=== PATIENT | male | born 1975 | race Caucasian/White ===

== ENCOUNTER 2017-11-17 11:15 | Emergency (ER) | payer OTHER ==
[2017-11-17] MEDS ORDERED: Sodium Chloride 0.9% 10 ML Syringe FLUSH PRN (11:41)
[2017-11-17] MEDS ORDERED: Dicyclomine 10 MG Cap PO ONE (11:42)
--- NOTE | 2017-11-17 11:43 | EDM.PDOC ---
ED HPI GENERAL MEDICAL PROBLEM - General Chief Complaint: Abdominal Pain Stated Complaint: ABDOMINAL PAIN Time Seen by Provider: 11/17/17 11:31 Source of Information: Reports: Patient History Limitations: Reports: No Limitations - History of Present Illness INITIAL COMMENTS - FREE TEXT/NARRATIVE: Patient is a 42-year-old male presents ED complaining of periumbilical abdominal pain that started since this past Saturday. States discomfort is described as a crampy sensation that waxes and wanes and comes and goes throughout the day. States yesterday the pain was worse. His appetite is poor and has been experiencing early satiety. States at times he has increased flatulence with relief of pain with passing gas. He does not feel constipated and notes he is having normal bowel movements that are semi-hard with no blood present. There is no straining noted. There is no prior history as such. He denies any acid reflux. No dizziness, dysuria, testicular pain, or ingestion of bad or questionable food, sick exposures, or recent out of country travel. Patient did take a laxative yesterday with no significant change. Has no additional past medical history. Currently taking no medications. Surgical history none. Treatments NETWORKING SPECIALIST: Reports: Other (see below) Other Treatments NETWORKING SPECIALIST: [email or web address] Lower Abdomen Pain Score (Numeric/FACES): 3 - Related Data Allergies Allergy/AdvReac Type Severity Reaction Status Date / Time No Known Allergies Allergy Verified 11/17/17 11:26 Home Meds: Home Meds . [No Known Home Meds] 11/17/17 [History] Past Medical History - Past Surgical History HEENT Surgical History: Reports: Tonsillectomy Musculoskeletal Surgical History: Reports: Other (See Below) Other Musculoskeletal Surgeries/Procedures:: septic knee Social & Family History - Tobacco Use Smoking Status *Q: Current Every Day Smoker Years of Tobacco use: 15 Packs/Tins Daily: 0.5 - Caffeine Use Caffeine Use: Reports: Coffee, Soda, Tea - Recreational Drug Use Recreational Drug Use: No ED ROS GENERAL - Review of Systems Review Of Systems: See Below Constitutional: Reports: Decreased Appetite. Denies: Fever, Chills HEENT: Reports: No Symptoms Respiratory: Reports: No Symptoms Cardiovascular: Reports: No Symptoms GI/Abdominal: Reports: Abdominal Pain, Decreased Appetite, Distension, Flatus. Denies: Black Stool, Bloody Stool, Constipation, Diarrhea, Hematemesis, Hematochezia, Melena, Mucous in Stool, Nausea, Vomiting : Reports: No Symptoms Musculoskeletal: Reports: No Symptoms Neurological: Reports: No Symptoms ED EXAM, GI/ABD - Physical Exam Exam: See Below Exam Limited By: No Limitations General Appearance: Alert, WD/WN, No Apparent Distress Ears: Hearing Grossly Normal Nose: Normal Inspection Throat/Mouth: Normal Inspection, Normal Oropharynx, Normal Voice, No Airway Compromise Respiratory/Chest: No Respiratory Distress, Lungs Clear, Normal Breath Sounds, No Accessory Muscle Use Cardiovascular: Normal Peripheral Pulses, Regular Rate, Rhythm GI/Abdominal Exam: Normal Bowel Sounds, Distended, Tender (minimal suprapubic abdominal pain. Negative McBurney's, negative Hernandez sign.) (Male) Exam: Deferred (No complaints) Rectal (Males) Exam: Deferred (No complaints) Back Exam: Normal Inspection Extremities: Normal Inspection Neurological: Alert, Oriented, CN II-XII Intact, Normal Cognition, No Motor/ Sensory Deficits Psychiatric: Normal Affect, Normal Mood Skin Exam: Warm, Dry, Intact, Normal Color Course - Vital Signs Last Recorded V/S: Last Vital Signs Temp 98.1 F 11/17/17 11:21 Pulse 87 11/17/17 11:21 Resp 20 11/17/17 11:21 BP 127/86 11/17/17 11:21 Pulse Ox 98 11/17/17 11:21 Orthostatic Blood Pressure [ 111/85 Standing] Orthostatic Blood Pressure [ 126/96 Sitting] Orthostatic Blood Pressure [ 126/89 Supine] - Orders/Labs/Meds Orders: Active Orders 24 hr Category Date Time Status Peripheral IV Care [RC] . DIRECTED Care 11/17/17 11:41 Active Abdomen 2V AP Flat Upright [CR] Stat Exams 11/17/17 11:42 Taken UA W/MICROSCOPIC [URIN] Stat Lab 11/17/17 12:55 Ordered Peripheral IV Insertion Adult [OM.PC] Routine Oth 11/17/17 11:41 Ordered Labs: Laboratory Tests 11/17/17 11/17/17 11/17/17 Range/Units 11:50 11:50 12:55 WBC 5.14 (4.23-9.07) K/mm3 RBC 5.01 (4.63-6.08) M/mm3 Hgb 16.8 (13.7-17.5) gm/L Hct 47.9 (40.1-51.0) % MCV 95.6 H (79.0-92.2) fl MCH 33.5 H (25.7-32.2) pg MCHC 35.1 (32.2-35.5) g/dl RDW Std Deviation 40.8 (35.1-43.9) fL Plt Count 247 (163-337) K/mm3 MPV 9.3 L (9.4-12.3) fl Neutrophils % (Manual) 71 H (40-60) % Band Neutrophils % 0 (0-10) % Lymphocytes % (Manual) 25 (20-40) % Atypical Lymphs % 0 % Monocytes % (Manual) 2 (2-10) % Eosinophils % (Manual) 2 (0.8-7.0) % Basophils % (Manual) 0 L (0.2-1.2) Platelet Estimate Adequate RBC Morph Comment Normal Sodium 141 (136-145) mEq/L Potassium 4.0 (3.5-5.1) mEq/L Chloride 105 (98-107) mEq/L Carbon Dioxide 26 (21-32) mEq/L Anion Gap 14.0 (5-15) BUN 14 (7-18) mg/dL Creatinine 0.9 (0.7-1.3) mg/dL Est Cr Clr Drug Dosing 136.50 mL/min Estimated GFR (MDRD) > 60 (>60) mL/min BUN/Creatinine Ratio 15.6 (14-18) Glucose 86 (74-106) mg/dL Calcium 9.1 (8.5-10.1) mg/dL Total Bilirubin 0.8 (0.2-1.0) mg/dL AST 17 (15-37) U/L ALT 25 (16-63) U/L Alkaline Phosphatase 67 (46-116) U/L C-Reactive Protein < 0.2 (<1.0) mg/dL Total Protein 7.3 (6.4-8.2) g/dl Albumin 4.0 (3.4-5.0) g/dl Globulin 3.3 gm/dL Albumin/Globulin Ratio 1.2 (1-2) Lipase 96 (73-393) U/L Urine Color Yellow (Yellow) Urine Appearance Clear (Clear) Urine pH 6.0 (5.0-8.0) Ur Specific [place] 1.025 (1.005-1.030) Urine Protein Trace H (Negative) Urine Glucose (UA) Negative (Negative) Urine Ketones Negative (Negative) Urine Occult Blood Negative (Negative) Urine Nitrite Negative (Negative) Urine Bilirubin Negative (Negative) Urine Urobilinogen 0.2 (0.2-1.0) Ur Leukocyte Esterase Negative (Negative) Urine RBC 0-5 (0-5) /hpf Urine WBC 0-5 (0-5) /hpf Ur Epithelial Cells 0-5 (0-5) /hpf Urine Bacteria Not seen (FEW) /hpf Urine Mucus Not seen (FEW) /hpf Meds: Medications Discontinued Medications Generic Name Dose Route Start Last Admin Trade Name Freq PRN Reason Stop Dose Admin Dicyclomine HCl 20 mg 11/17/17 11:42 11/17/17 11:49 Bentyl PO 11/17/17 11:43 20 mg ONETIME ONE Administration Sodium Chloride 1,000 mls @ 999 mls/hr 11/17/17 11:56 11/17/17 12:01 Normal Saline IV 11/17/17 12:56 999 mls/hr ONETIME ONE Administration Magnesium Citrate 296 ml 11/17/17 13:44 11/17/17 13:57 Citrate Of Magnesia PO 11/17/17 13:45 296 ml ONETIME ONE Administration Sodium Chloride 10 ml 11/17/17 11:41 11/17/17 11:49 Saline Flush FLUSH 10 ml ASDIRECTED PRN Administration Keep Vein Open - Re-Assessments/Exams Free Text/Narrative Re-Assessment/Exam: IV established with initial labs including: CBC, chem 14, lipase, UA, CRP, and 2 view of the abdomen. Ordered Bentyl 20 mg by mouth. 2 view of the abdomen impression: Reviewed with Dr. Villegas. Nonspecific air and stool pattern. Findings maybe related to gastroenteritis. Labs reviewed: CBC, chem 14, and UA were sent and normal. CRP less than 0.2. Lipase normal. Reassessment, patient's feeling better after the Bentyl. We discussed obtaining CT the abdomen and pelvis to which I do not agree at this point. Suspect cause of discomfort is most likely related to constipation since he does get relief with passing gas and feels more distended. Exam findings were minimal. Patient agrees with this and will go ahead and treat the constipation with mag citrate one bottle this afternoon. One capful of MiraLAX every day for the next month. Follow-up with PCP in 3-5 days for reevaluation. He will return to the ED if he should develop any new or worsening symptoms. Departure - Departure Time of Disposition: 13:43 Disposition: Home, Self-Care 01 Condition: Good Clinical Impression: Abdominal pain in male Constipation Qualifiers: Constipation type: unspecified constipation type Qualified Code(s): K59.00 - Constipation, unspecified - Discharge Information *PRESCRIPTION DRUG MONITORING PROGRAM REVIEWED*: No *COPY OF PRESCRIPTION DRUG MONITORING REPORT IN PATIENT BENNY: No Instructions: High-Fiber Diet, Constipation, Adult, Abdominal Pain, Adult, Easy -to-Read Referrals: PCP,None [Primary Care Provider] - Forms: ED Department Discharge Additional Instructions: Take full bottle of mag citrate upon returning home. Push the fluids. Utilize one capful of MiraLAX every day with juice of your choice. Continue to push the fluids of working outside. This would include Gatorade, Powerade, and water. Increase fiber in diet. May use Gas-X as needed for abdominal discomfort and increased flatulence. Please return to the ED if you develop any new or worsening symptoms. See your PCP in 3-5 days for reevaluation as needed. - My Orders Last 24 Hours: My Active Orders 11/17/17 11:41 Peripheral IV Care [RC] . DIRECTED Peripheral IV Insertion Adult [OM.PC] Routine 11/17/17 11:42 Abdomen 2V AP Flat Upright [CR] Stat 11/17/17 12:55 UA W/MICROSCOPIC [URIN] Stat - Assessment/Plan Last 24 Hours: My Active Orders 11/17/17 11:41 Peripheral IV Care [RC] . DIRECTED Peripheral IV Insertion Adult [OM.PC] Routine 11/17/17 11:42 Abdomen 2V AP Flat Upright [CR] Stat 11/17/17 12:55 UA W/MICROSCOPIC [URIN] Stat
[2017-11-17] MEDS ORDERED: Sodium Chloride 0.9% 1,000 ML IV ONE (11:56)
[2017-11-17] MEDS ORDERED: Magnesium Citrate Solution 296 ML Bottle PO ONE (13:44)
--- NOTE | 2017-11-18 10:51 | CR ---
Abdomen: Supine and upright views of the abdomen were obtained. Comparison: No prior study. Bowel gas pattern is normal. No abnormal calcifications or soft tissue abnormality is seen. Bony structures are unremarkable. Impression: 1. Nothing acute is appreciated on two-view chest x-ray. Diagnostic code #1
== END 2017-11-17 13:58 | disposition home or self-care (01) ==
LOC: JD.ED 11:15
DX: K59.00 Constipation, unspecified (principal); F17.210 Nicotine dependence, cigarettes, uncomplicated
CPT/HCPCS: 36415; 74019; 80053; 81001; 83690; 85007; 85027; 86140; 96360; 99284; A9270; J7040; J7050